=== PATIENT | female | born 1975 | race Caucasian/White ===

== ENCOUNTER 2016-06-30 17:56 | Emergency (ER) | payer OTHER ==
--- NOTE | 2016-06-30 18:23 | ERNOTE ---
Lower Extremity HPI - Narrative Date of Service: 06/30/16 - General Lower Extremities Pain: hip: right, leg: right Time Seen by Provider: 06/30/16 18:23 Source: patient, family - daughter. - Immun/Allergies/Home Medications Immunizations: IMMUNIZATION HX Immunizations Up to Date No History of Influenza Vaccine No Hx Pneumococcal Vaccination No Allergies/Adverse Reactions: Allergies Allergy/AdvReac Type Severity Reaction Status Date / Time ketorolac [From Toradol] AdvReac Verified 06/30/16 18:07 prochlorperazine AdvReac Verified 06/30/16 18:07 [From Compazine] Home Medications: HOME MEDICATIONS Albuterol Sulfate [Albuterol Sulfate 0.63 MG/3ML] 2 puff INH PRN PRN 06/30/16 [ Last Taken Unknown] Amitriptyline HCl [Elavil] 50 mg PO HS 06/30/16 [Last Taken Unknown] Buspirone HCl 15 mg PO BID 06/30/16 [Last Taken Unknown] Citalopram Hydrobromide [Citalopram HBr] 40 mg PO DAILY 06/30/16 [Last Taken Unknown] Fluticasone/Salmeterol [Advair 250-50 Diskus] 1 puff IH BID 06/30/16 [Last Taken Unknown] Hydrochlorothiazide 12.5 mg PO DAILY 06/30/16 [Last Taken Unknown] Meloxicam 7.5 mg PO BID 06/30/16 [Last Taken Unknown] Mirtazapine [Mirtazapine (Remeron)] 15 mg PO DAILY 06/30/16 [Last Taken Unknown] Ranitidine HCl [Acid Card Folder] 150 mg PO DAILY 06/30/16 [Last Taken Unknown] Zolpidem Tartrate [Ambien] 5 mg PO HS 06/30/16 [Last Taken Unknown] clonazePAM [Klonopin] 1 mg PO BID 06/30/16 [Last Taken Unknown] - History of Present Illness Narrative: pt c/o of more than a week of feeling like she had increased swelling to her right leg. She also has a c/o of chronic soreness to her right knee "like a rubber band". No history of any trauma. She does stand on her feet all shift while working at [employer] in [place] where she lives. She has her physician up in [place], whom she has not consulted about this, but decided while she was visiting her daughter down here today she would check with us. She is doing nothing for this problem currently. She states she has a hx of anxiety and depdression and hypertension. Review of Systems - Review of Systems Constitutional: Present: no symptoms reported, See HPI EYE: Present: no symptoms reported ENT: Present: no symptoms reported Respiratory: Present: no symptoms reported Cardiology: Present: no symptoms reported Gastrointestinal/Abdominal: Present: no symptoms reported Genitourinary: Present: no symptoms reported Musculoskeletal: Present: See HPI, muscle pain - and swelling to right leg with soreness to her knees , r>l Skin: Present: no symptoms reported Neurological: Present: no symptoms reported Endocrine: Present: no symptoms reported Hematologic/Lymphatic: Present: no symptoms reported Psych: Present: anxiety, depressed All Other Systems: All systems neg except as marked - Patient's Past Medical History Patient History - Medical: No pertinent hx, Anxiety, Depression, Hypothyroidism Patient History - Cardiac/Respiratory: COPD, Hypertension Patient History - Cancer: No Hx of Cancer Patient History - Surgical Procedures: Hysterectomy Patient History - Other: None LMP (females 10-50): hysterectomy - Social History Living Situations: home Abuse History: Hx of Substance Use Psych History: Hx of Anxiety, Hx of Depression, Current tx/ever been on anti- depressants or anti-anxiety meds Smoking Status: Current every day smoker Alcohol Use: none Drug Use: none - Immunizations Immunizations Up to Date: No Hx Pneumococcal Vaccination: No History of Influenza Vaccine: No Physical Exam - Physical Exam General Appearance: Present: wd/wn, alert, no apparent distress Peripheral Pulses: N=norm/S=strong/W=weak/B=bound/A=absent: Dorsalis-pedis (R): Normal, Dorsalis-pedis (L): Normal Extremity Exam: Present: normal inspection, non-tender - no calf pain or pain when examining her knees. circum of both knees = 37 cm with no effusion in either knee. cicumference of both cslf at 15 cm distal to lower patella = 36.5 on the right and 37 on the left. She says she is left handed. exam of the knees shows no sign of instability or decreased rom to either knee. she has no calf pain to squeeze and she has normal distal pulses and refill and sensation in her feet. there is no visible swelling or pitting edema to either leg. , normal range of motion, no edema Neurological Exam: Present: alert, oriented DTR: N=norm/NB=norm/brisk/A=abs/DD=dull/dimin/HC=hyperactive: Knee (R): Normal, Knee (L): Normal, Ankle (R): Normal, Ankle (L): Normal Skin Exam: Present: normal color, warm/dry ED Progress - Vital Signs Vital Signs: Vital Signs 06/30/16 17:57 Temperature 36.7 C Pulse Rate 99 Respiratory 16 Rate Blood Pressure 155/78 O2 Sat by Pulse 100 Oximetry - Progress/Reassessment Chief Complaint: Lower Extremity Pain/ Injury Progress:: Unchanged - suspect malingering though she may have soreness from her job which entails standing for 8 hours . Departure Clinical Impression: Leg swelling - Departure Disposition: Home Follow Up Needed Condition: Good Instructions: Arthritis, [id number] Additional Instructions: Trial of bio-freeze or preform . Wear compression hose to your legs during the day, especially when you are up and around. At night remove the hose and elevate your legs above the level of your heart. You may use your meloxicam or ibuprofen , 600 mg every 8 hours with food in your stomach, or aleve , 2 tablets every 4 hours,and/ or Tylenol , 650 mg every 6 hours. If having continual problem be sure to follow up with your family doctor for chronic issues.
--- OUTSIDE RECORDS SUMMARY | 2016-06-30 18:43 | XMS REPORT | Continuity of Care Document ---
:1975 Author Organization [facility] ([facility]) Address [place] [address] Phone [phone] Care Team Providers Name Role Phone Nicci Ontiveros Primary Care Provider [phone] Source Comments This disclosure is being made pursuant to the Care Everywhere program, applicable federal and state laws, and may not contain all informaitonavailable regarding this patient.[facility] ([facility]) Active Allergies and Adverse Reactions Allergen Noted Date Severity Reactions Comments Ketorolac Tromethamine Nausea & Vomiting Prochlorperazine Agitation Propoxyphene Nausea & Vomiting Current Medications Prescription Sig. Disp. Refills Start Date End Date Status PARoxetine (PAXIL) 40 mg Take 40 mg by Active tablet mouth daily. ALPRAZolam (XANAX) 1 mg Take 1 mg by mouth Active tablet 3 times daily as needed. HYDROcodone-acetaminophen Take 1 Tab by 40 Tab 0 09/19/2009 Active (LORTAB) 5-500 mg per mouth every 4 tablet hours as needed. Indications: Pain tamsulosin (FLOMAX) 0.4 Take 1 Cap by 30 Cap 11 09/19/2009 Active mg ER capsule mouth at bedtime. Indications: kidney stones ibuprofen (MOTRIN) 600 mg Take 1 Tab by 30 Tab 11 09/19/2009 Active tablet mouth every 6 hours as needed. Indications: Pain Active Problems Not on file Social History Tobacco Use Types Packs/Day Years Used Date Never Assessed Last Filed Vital Signs Vital Sign Reading Time Taken Blood Pressure 91/61 08/04/2013 4:02 PM CDT Pulse 69 08/04/2013 4:02 PM CDT Temperature 35.8 C (96.4 F) 08/04/2013 4:02 PM CDT Respiratory Rate 22 08/04/2013 4:02 PM CDT Height 1.6 m (5' 3") 09/29/2009 3:56 AM CDT Weight 78.472 kg (173 lb) 09/29/2009 3:56 AM CDT Body Mass Index 30.65 09/29/2009 3:56 AM CDT Oxygen Saturation 95% 09/29/2009 3:56 AM CDT Plan of Care Health Maintenance Due Date Last Done Comments Hepatitis B Vaccine (1 of 3 - Primary Series) 1975 Tdap Vaccine 06/21/1987 Lipid Disorder Screening 1994 MMR Vaccine 1994 Td Vaccine 1994 Cervical Cancer Screening 2006 Influenza Vaccine: Seasonal (Season Ended) 2016 Results from Last 3 Months Not on file
--- OUTSIDE RECORDS SUMMARY | 2016-06-30 18:43 | XMS REPORT | CCD ---
:1975 Author Name JUSTA CHU Address [address] [facility] Unavailable [place], [place] [id number] Care Team Providers Name Role Phone ROSANGELA NELSON MD Attending Physician Unavailable ROSANGELA NELSON MD Er Physician 1 Unavailable DAHIANA Nelson Registered Nurse Unavailable Vital Signs Vital Sign Value Unit Weight Measured 120 lbs Height 63 in BMI (Body Mass Index) 21.26 kg/m^2 BSA (Body Surface Area) 1.56 m^2 Allergies Allergy Code Allergy Type Reaction Status COMPAZINE 0 Drug allergy (disorder) HIVES Active MORPHINE 0 Drug allergy (disorder) CHEST PAIN Active TORADOL 0 Drug allergy (disorder) DYSPNEA Active Procedures Unknown. History of Immunizations Unknown. Problems Problem Code Start Date Resolved Date Status LOW BACK PAIN 095989817 05/24/2012 Active TOBACCO USE DISORDER 90470101 05/24/2012 Active BIPOLAR AFFECTIVE DISORDER 28099632 05/24/2012 Active ESOPHAGEAL REFLUX 246883512 05/24/2012 Active Results COMPREHENSIVE METABOLIC PANEL Test Name Code Test Result Test Units Test Date/Time GLUCOSE 97.0000 mg/dL 04/24/2013 16:11 SODIUM 141.0000 mmol/L 04/24/2013 16:11 POTASSIUM 3.9000 mmol/L 04/24/2013 16:11 CHLORIDE 103.0000 mmol/L 04/24/2013 16:11 CO2 30.0000 mmol/L 04/24/2013 16:11 BUN 18.0000 mg/dL 04/24/2013 16:11 CREATININE 0.8000 mg/dL 04/24/2013 16:11 BUN/CREAT 22.5000 04/24/2013 16:11 CALCIUM 8.8000 mg/dL 04/24/2013 16:11 TOTAL BILI 0.2000 mg/dL 04/24/2013 16:11 TOTAL PROTEIN 7.0000 g/dL 04/24/2013 16:11 ALBUMIN 3.9000 g/dL 04/24/2013 16:11 A/G RATIO 1.3000 04/24/2013 16:11 ALKALINE PHOS 124.0000 IU/L 04/24/2013 16:11 AST/SGOT 8.0000 IU/L 04/24/2013 16:11 ALT/SGPT 24.0000 IU/L 04/24/2013 16:11 ANION GAP 11.6000 mmol/L 04/24/2013 16:11 AGE 36.0000 YEARS 04/24/2013 16:11 GFR 86.2600 ml/min 04/24/2013 16:11 CBC Test Name Code Test Result Test Units Test Date/Time WBC 6690-2 6.5000 K/uL 04/24/2013 16:11 RBC 789-8 4.4200 M/uL 04/24/2013 16:11 HEMOGLOBIN 718-7 13.4000 g/dL 04/24/2013 16:11 HEMATOCRIT 39.1000 % 04/24/2013 16:11 MCV 88.5000 fL 04/24/2013 16:11 MCH 30.3000 PG 04/24/2013 16:11 MCHC 34.3000 G/DL 04/24/2013 16:11 RDW-SD 41.9000 FL 04/24/2013 16:11 RDW-CV 13.4000 % 04/24/2013 16:11 PLATELETS 315.0000 K/UL 04/24/2013 16:11 MPV 9.9000 FL 04/24/2013 16:11 %GRAN 43.7000 % 04/24/2013 16:11 %LYMPH 45.8000 % 04/24/2013 16:11 %MONO 7.6000 % 04/24/2013 16:11 %EOS 2.0000 % 04/24/2013 16:11 %BASO 0.9000 % 04/24/2013 16:11 #GRAN 2.8300 K/UL 04/24/2013 16:11 #LYMPH 2.9700 K/UL 04/24/2013 16:11 #MONO 0.4900 K/UL 04/24/2013 16:11 #EOS 0.1300 K/UL 04/24/2013 16:11 #BASO 0.0600 K/UL 04/24/2013 16:11 SLIDE REVIEWED? NOT INDICATED N/A 04/24/2013 16:11 MANUAL DIFF NOT INDICATED N/A 04/24/2013 16:11 Medications Medication Code Dose Units Frequency Route Modification Start Stop Date/Time Date/Time OTC HORMONE 0 REPLACEMENT STOMACH PILL 0 1 TABLET Daily BY MOUTH RANITIDINE 0 [place] [id number] 450 MILLIGRAMS ORAL Carbonate 450MG Oral Tablet, Extended Release Medications Administered Unknown. Encounters Encounter Diagnosis Diagnosis Code Start Date ABDOMINAL PAIN, OTHER SPECIFIED SIT 10012 04/24/2013 Social History Smoking Status Code Start Date End Date Current every day smoker 527726824 Patient Decision Aids Patient Decision Aid [facility] Patient Educational Materials Instructions You were admitted to [facility] on 04/24/2013 with a principle diagnosis of ABDOMINAL PAIN, OTHER SPECIFIED SIT. You were discharged from [facility] on 04/24/2013. Should you have any questions prior to discharge, please contact a member of your healthcare team. If you have left the hospital and have any questions, please contact your primary care physician. Chief Complaint and Reason For Visit Chief Complaint Date of Onset ABD PAIN Function Status Unknown. Plan of Care Unknown. Referral/Transition of Care Unknown.
--- OUTSIDE RECORDS SUMMARY | 2016-06-30 18:43 | XMS REPORT | Continuity of Care Document ---
:1975 Author Organization [facility] [place] [address] Care Team Providers Name Role Phone Unavailable Primary Care Provider Unavailable Source Comments This disclosure is being made pursuant to the iWOPI program and maynot contain all information available regarding this patient.[facility] Active Allergies and Adverse Reactions Not on File Current Medications Be aware that medications may not be up to date as of this document. Alwaysverify current medications with the patient. Not on file Active Problems Not on file Social History Tobacco Use Types Packs/Day Years Used Date Never Assessed Plan of Care Health Maintenance Due Date Last Done Comments Retired-Pertussis Vaccine Adult 06/21/1995 Retired-Tetanus Vaccine Adult 06/21/1995 Pap Smear 1997 Retired-INFLUENZA VACCINE 10/18/2014 Results from Last 3 Months Not on file
[2016-06-30] MEDS ORDERED: ACETAMINOPHEN 325 MG TABLET PO ONE (18:47)
[2016-06-30] MEDS ORDERED: ACETAMINOPHEN 325 MG TABLET ONE (18:48)
[2016-06-30 19:36] VITALS: BP 144/78
== END 2016-06-30 18:50 | disposition home or self-care (01) ==
LOC: ER 17:56
DX: M79.89 Other specified soft tissue disorders (principal); F41.8 Other specified anxiety disorders; I10 Essential (primary) hypertension; E78.5 Hyperlipidemia, unspecified; J44.9 Chronic obstructive pulmonary disease, unspecified; Z72.0 Tobacco use